=== PATIENT | male | born 2000 | race Caucasian/White ===

== ENCOUNTER 2022-02-18 17:40 | Emergency (ER) | payer BC, SELFPAY ==
[2022-02-18 17:40] VITALS: BP 143/80; PULSE 120; RESP 16; TEMP 38.2; O2SAT 98; BMI 26.6
[2022-02-18 17:53] VITALS: TEMP 38.4
--- NOTE | 2022-02-18 17:53 | EX.ED.DYSGE1 ---
HPI History of Present Illness Chief Complaint: General Illness Narrative Narrative: 21-year-old male who denies significant past medical history presents with his mother because of fever, nausea, vomiting, diarrhea, and dehydration. He states his symptoms began a week ago on Tuesday, over 8 days ago, when he had a sore throat. He developed nonproductive cough. Those symptoms have resolved, but on Tuesday, 4 days ago, he began having abdominal pain, nausea and vomiting. He has vomited 3 times in the last 24 hours without any blood in his emesis. He states it is hard for him to keep any food or water down. He also developed diarrhea. Mother states that he had right lower quadrant pain, but the patient describes more right upper quadrant pain. He states he has twinges of pain sometimes when he breathes deep in his right upper quadrant of his abdomen. He denies any right lower quadrant abdominal pain currently. No hematuria or dysuria. No blood in his stool. He is having loose, watery stool. His main concern is that he is dehydrated. PFSH [facility] Medical History no medical history Home Medications ondansetron 4 mg disintegrating tablet 4 mg PO Q6H PRN nausea and vomiting #15 tabs 02/18/22 [Rx Last Taken Unknown] Allergy/AdvReac Type Severity Reaction Status Date / Time No Known Allergies Allergy Verified 02/18/22 17:42 Social History Smoking Status: Never smoker ROS ROS ED ROS Narrative Constitutional: Positive fever, no chills. Feels mildly weak and dehydrated HEENT: No sore throat currently, started last week but has resolved. No neck pain. No loss of vision. No rhinorrhea. Cardiovascular: No chest pain. No palpitations. No pedal edema. Respiratory: Occasional cough, no shortness of breath. Abdominal: Right lower quadrant abdominal pain on Tuesday-resolved. Positive nausea. Positive vomiting. Positive diarrhea Genitourinary: No dysuria. No hematuria. Musculoskeletal: No myalgias. No arthralgias. Neurologic: No headaches. No dizziness. No lightheadedness. Skin: No rash. No change in color. Psychiatric: No depression. No anxiety. EXAM Physical Exam Narrative Exam Narrative: Temperature 100.7 ?F vital signs noted. Nontoxic-appearing. HEENT: Normocephalic. Atraumatic. PERRL, EOMI. Neck soft and supple. No point tenderness or step off. Cardiovascular: Positive tachycardia. No murmurs, rubs, or gallops appreciated. Respiratory: No tachypnea. Lungs clear to auscultation bilaterally. Gastrointestinal: Abdomen soft, nontender, with normoactive bowel sounds. No rebound or guarding. No pain in right lower quadrant of abdomen. No pain over McBurney's point. Negative Kennedy sign. Neurological: Awake. Alert. Nonfocal, nonlateralizing. Skin: No rash. Normal color. No pallor. Musculoskeletal: No pedal edema. Full range of motion extremities. Const Vital Signs: 02/18/22 17:40 02/18/22 17:53 Temperature 100.7 F H 101.2 F H Temperature Source Temporal Temporal Pulse Rate 120 H Respiratory Rate 16 Blood Pressure 143/80 H Blood Pressure Mean 101 Pulse Ox 98 Oxygen Delivery Method Room Air MDM MDM MDM Narrative Medical decision making narrative: Patient had taken Aleve prior to arrival approximately 2 hours ago and was able to keep it down. He will be bolused IV fluids. I will swab him for COVID, influenza, and RSV. Additionally, as he is febrile here he will be administered Toradol. He will also be administered ondansetron. I will check a CBC, CMP, and lipase given his nausea and vomiting. I will also check a urinalysis. I do not feel chest x-ray is indicated currently. His lungs are clear to auscultation bilaterally and his pulse ox is 98% on room air. I will hold off on any CT imaging as he has a nontender, soft abdomen/nonsurgical abdomen. CBC is grossly normal with a normal white count at 9.9, hemoglobin normal at 15.1, hematocrit 43.8, platelet count slightly low at 110 which I think is nonspecific. Sodium just below normal at 134 with a hypokalemia of 3.2, chloride 97 consistent with mild dehydration. He has a BUN of 13 with a creatinine of 1.26. Urinalysis is negative for infection with 0-5 white cells. I do not feel antibiotics are indicated. He was given oral potassium. I will administer Toradol 30 mg intravenously for his elevated temperature. After ondansetron and IV fluids he states he feels improved. His abdomen remains soft. I do not feel CT imaging is indicated. He has no pain in the right lower quadrant. Regardless, I reviewed appendicitis return precautions with the patient and his mother. He will start a clear liquid diet and advance as tolerated. He was written a prescription for Zofran 4 mg ODT's #15. At this point in time, I do feel he can be discharged safely home with follow-up. His respiratory swabs are negative. Return instructions to the emergency department were reviewed. Disposition is discharged home in stable condition. Lab Data Attestation: I reviewed the patient's lab results. Labs: Laboratory Results - last 24 hr 02/18/22 02/18/22 02/18/22 18:04 18:04 18:10 WBC 9.9 RBC 5.05 Hgb 15.1 Hct 43.8 MCV 86.7 MCH 29.9 MCHC 34.5 RDW Std Deviation 39.4 RDW Coeff of Tank 12.3 Plt Count 110 L MPV 10.2 Immature Gran % (Auto) 0.700 Neut % (Auto) 94.1 H Lymph % (Auto) 2.4 L [place] % (Auto) 2.5 Eos % (Auto) 0.0 Baso % (Auto) 0.3 Absolute Neuts (auto) 9.3 H Absolute Lymphs (auto) 0.24 L Nucleated RBC % 0 Differential Comment SCANNED Sodium 134 L Potassium 3.2 L Chloride 97 L Carbon Dioxide 28.0 Anion Gap 9 BUN 13 Creatinine 1.26 Estim Creat Clear Calc 99.60 Est GFR (MDRD) Af Amer 94 Est GFR (MDRD) Non-Af 77 BUN/Creatinine Ratio 10.3 Glucose 153 H Calcium 8.5 Total Bilirubin 1.30 H AST 45 H ALT 47 Alkaline Phosphatase 87 Total Protein 7.3 Albumin 3.3 Globulin 4.0 Albumin/Globulin Ratio 0.8 L Lipase 90 Urine Color [place] Urine Clarity Sl. Cloudy Urine pH 6.0 Ur Specific [place] 1.020 Urine Protein 100 H Urine Glucose (UA) Normal Urine Ketones 5 H Urine Occult Blood 150 H Urine Nitrite Negative Urine Bilirubin 1 H Urine Urobilinogen 4 H Ur Leukocyte Esterase 25 H Urine RBC 0-5 SEEN Urine WBC 0-5 SEEN Ur Squamous Epith Cells 0-5 SEEN Urine Bacteria 1+ Urine Mucus RARE Discharge Plan Triage Chief Complaint: General Illness ED Provider: Phi Grayson Dx/Rx/DC Orders Clinical Impression: Fever, Nausea vomiting and diarrhea, Abdominal pain, Hypokalemia Instructions: ED Diet Vomiting Diarrhea, ED Fever Control (Adult), ED Hypokalemia, ED Abdominal Pain Unkn Cause Male..., ED Vomiting and Diarrhea ... Prescriptions: New ondansetron 4 mg tablet,disintegrating 4 mg PO Q6H PRN (Reason: nausea and vomiting) Qty: 15 0RF Primary Care Provider: Jade Patten LIQUID COMPOUNDER Referrals: NOT,DEFINED [Non-Staff] - Activity Restrictions/Additional Instructions: Drink plenty of fluids. Disposition Disposition: Home, Self Care
[2022-02-18] MEDS: Ondansetron 4 MG/2 ML Vial IV (18:13)
[2022-02-18] MEDS: 0.9% Normal Saline 1,000 ML 1000 ML IV (18:13)
[2022-02-18 18:20] LABS: Absolute Lymphocyte Count 0.24 X10^3/uL (0.83-4.51); Absolute Neutrophil Count 9.3 X10^3/uL (2.0-7.7); Basophil# 0.03 X10^3/uL; Basophil% 0.3 % (0-1); Hematocrit 43.8 % (40-54); Hemoglobin 15.1 g/dL (13.0-16.5); Lymphocyte # 0.24 X10^3/ul (0.83-4.51); Lymphocyte % 2.4 % (19-41); Mean Corp Hgb Conc 34.5 g/dL (32-36); Mean Corpuscular Hgb 29.9 pg (27.0-32.0); Mean Corpuscular Volume 86.7 fL (80-94); Mean Platelet Vol. 10.2 fl (6.2-12.0); Monocyte# 0.25 X10^3/uL; Monocyte% 2.5 % (0-10); NRBC Flagged by Analyzer 0 % (0-5); Neutrophil # 9.32 X10^3/uL (2.7-7.7); Neutrophil % 94.1 % (47-70); POSITIVE DIFFERENTIAL YES; Platelet Count 110 K/mm3 (150-450); RBC Distribution Width CV 12.3 % (11.6-14.6); RBC Distribution Width SD 39.4 fl (35.1-43.9); Red Blood Count 5.05 M/mm3 (4.6-6.2); White Blood Count 9.9 K/mm3 (4.4-11.0)
[2022-02-18 18:27] LABS: Color, Urine Amber (Yellow); Glucose, Dipstick Normal (Normal); Ketone-Dipstick 5 mg/dl (Negative); Leukocyte Esterase-Dipstick 25 /ul (Negative); Nitrite-Dipstick Negative (Negative); Occult Blood-Urine 150 /ul (Negative); Protein-Dipstick 100 mg/dl (Negative); Urine Clarity Sl. Cloudy (Clear); Urine Urobilinogen 4 mg/dl (Normal)
[2022-02-18 18:27] LABS: Differential Indicated SCAN CRITERIA MET
[2022-02-18 18:32] LABS: Urine Bilirubin Dipstick 1 mg/dL (Negative)
[2022-02-18 18:34] LABS: Bacteria 1+ /hpf (None Seen); Mucous, Urine RARE /hpf (<or=2+); Red Blood Cells-Urine 0-5 SEEN /hpf (0-5); Squamous Epithelial Cells - UA 0-5 SEEN /hpf (0-5); White Blood Cells 0-5 SEEN /hpf (0-5)
[2022-02-18 18:39] LABS: ALB/GLOB Ratio 0.8 RATIO (0.9-2.4); AST(SGOT) 45 U/L (15-37); Alanine Aminotransfer ALT/SGPT 47 U/L (16-61); Albumin, Serum 3.3 g/dL (3.2-5.0); Alkaline Phosphatase 87 U/L (45-117); Anion Gap 9 (5-15); BUN 13 mg/dL (7-18); BUN/Creat Ratio 10.3 RATIO (10-20); Calcium,Total 8.5 mg/dL (8.5-10.1); Chloride 97 mmol/L (98-107); Creatinine, Serum 1.26 mg/dL (0.70-1.30); EST Glomerular Filtration Rate 77 mL/min (>60); Est Glom Filt Rate - Afr Amer 94 mL/min (>60); Glucose 153 mg/dL (74-106); Lipase 90 U/L (73-393); Potassium 3.2 mmol/L (3.5-5.1); Protein, Total 7.3 g/dL (6.4-8.2); Sodium Level 134 mmol/L (136-145)
[2022-02-18 18:49] LABS: Differential Comment SCANNED
[2022-02-18] MEDS: Ketorolac 30 MG/ML Syringe IV (19:04)
[2022-02-18] MEDS: Potassium Chloride Oral Tablet 20 MEQ 40 MEQ PO (19:04)
[2022-02-18 19:10] VITALS: BP 125/63; PULSE 98; RESP 18; O2SAT 97
== END 2022-02-18 19:24 | disposition home or self-care (01) ==
PROVIDERS: Emergency Provider Emergency Medicine; PCP Nurse Practitioner Family; Visit Provider Emergency Medicine
DX: R11.2 Nausea with vomiting, unspecified (principal); R19.7 Diarrhea, unspecified; E86.0 Dehydration; E87.6 Hypokalemia; R10.9 Unspecified abdominal pain; R50.9 Fever, unspecified
CPT/HCPCS: 80053; 81001; 83690; 85025; 87428; 87807; 96361; 96374; 96375; 99282; J7030; J2405

== ENCOUNTER 2022-02-20 16:39 | Emergency (ER) | payer BC, SELFPAY ==
[2022-02-20 16:40] VITALS: BP 150/89; PULSE 122; RESP 17; TEMP 39.6; O2SAT 99; BMI 27.6
[2022-02-20 18:19] LABS: Absolute Lymphocyte Count 0.31 X10^3/uL (0.83-4.51); Absolute Neutrophil Count 9.7 X10^3/uL (2.0-7.7); Basophil# 0.04 X10^3/uL; Basophil% 0.4 % (0-1); Eosinophil# 0.03 X10^3/uL; Eosinophils% 0.3 % (0-5); Hematocrit 41.8 % (40-54); Hemoglobin 14.4 g/dL (13.0-16.5); Lymphocyte # 0.31 X10^3/ul (0.83-4.51); Lymphocyte % 2.9 % (19-41); Mean Corp Hgb Conc 34.4 g/dL (32-36); Mean Corpuscular Hgb 29.9 pg (27.0-32.0); Mean Corpuscular Volume 86.7 fL (80-94); Monocyte# 0.61 X10^3/uL; Monocyte% 5.7 % (0-10); NRBC Flagged by Analyzer 0 % (0-5); Neutrophil # 9.72 X10^3/uL (2.7-7.7); Neutrophil % 90.1 % (47-70); POSITIVE DIFFERENTIAL YES; Platelet Count 121 K/mm3 (150-450); RBC Distribution Width CV 12.6 % (11.6-14.6); RBC Distribution Width SD 39.8 fl (35.1-43.9); Red Blood Count 4.82 M/mm3 (4.6-6.2); White Blood Count 10.8 K/mm3 (4.4-11.0)
[2022-02-20 18:20] LABS: Differential Indicated SCAN CRITERIA MET
[2022-02-20 18:22] LABS: Differential Comment SCANNED
[2022-02-20 18:26] LABS: Bacteria 0 SEEN /hpf (None Seen); Mucous, Urine 0 SEEN /hpf (<or=2+); Squamous Epithelial Cells - UA 0 SEEN /hpf (0-5); White Blood Cells 0 SEEN /hpf (0-5)
[2022-02-20 18:27] LABS: Color, Urine Yellow (Yellow); Glucose, Dipstick Normal (Normal); Ketone-Dipstick Negative (Negative); Leukocyte Esterase-Dipstick Negative /ul (Negative); Nitrite-Dipstick Negative (Negative); Occult Blood-Urine 50 /ul (Negative); Protein-Dipstick 15 mg/dl (Negative); Urine Bilirubin Dipstick Negative (Negative); Urine Clarity Sl. Cloudy (Clear); Urine Urobilinogen 1 mg/dl (Normal)
[2022-02-20 18:34] LABS: Red Blood Cells-Urine 0-5 SEEN /hpf (0-5)
[2022-02-20 18:35] LABS: Anion Gap 7 (5-15); BUN 12 mg/dL (7-18); BUN/Creat Ratio 10.3 RATIO (10-20); Calcium,Total 8.8 mg/dL (8.5-10.1); Chloride 101 mmol/L (98-107); Creatinine, Serum 1.16 mg/dL (0.70-1.30); EST Glomerular Filtration Rate 85 mL/min (>60); Est Glom Filt Rate - Afr Amer 103 mL/min (>60); Estimated Creatinine Clearance 108.19 ml/min; Glucose 118 mg/dL (74-106); Potassium 3.4 mmol/L (3.5-5.1); Sodium Level 136 mmol/L (136-145)
--- NOTE | 2022-02-20 19:34 | CT_ITS ---
STUDY: CT Abdomen And Pelvis W/ Contrast Injection 02/20/2022 8:09 PM REASON FOR EXAM: Male, 21 years old. ABDOMINAL PAIN abd pain and fever Technologist Notes rt side pain x 5 days, fever, nausea, emesis, TECHNIQUE: Transaxial images were obtained without oral contrast, and IV 100mL Isovue-370 intravenous contrast. Individualized dose optimization techniques were used for this CT. COMPARISON: None. FINDINGS: The visualized lung bases are unremarkable. The visualized portions of the heart are within normal limits. There is hepatomegaly with diffuse hepatic enlargement. Unremarkable gallbladder and extrahepatic biliary system. There is mild splenomegaly. Unremarkable pancreas. Multiple hepatic hypodensities. 21mm irregular hypodensity is also noted in the inferior right lobe of the liver. ACR White Paper guidelines (Hiller, et al. JACR 2017; 14(11):3273-8496.) recommend hepatic MR. Unremarkable bilateral adrenal glands. No acute findings of the right kidney. No acute findings of the left kidney. Unremarkable visualized stomach. Unremarkable small intestine. Unremarkable colon. The appendix is visualized and appears unremarkable. There are no acute findings of the abdominal aorta. Unremarkable inferior vena cava. Subcentimeter mesenteric lymph nodes. The urinary bladder is distended. This can suggest urinary retention. There is an umbilical hernia containing fat. Unremarkable osseous structures. CT/Abdomen/Pelvis W IV Cont ONLY IMPRESSION: (NOT LISTED IN ORDER OF SIGNIFICANCE) Enlarged liver. Multiple hepatic hypodensities. 21mm irregular hypodensity is also noted in the inferior right lobe of the liver. ACR White Paper guidelines (Hiller, et al. JACR 2017; 14(11):4594-6448.) recommend hepatic MR. The urinary bladder is distended. This can suggest urinary retention. There is mild splenomegaly. Other findings as above. Electronically Signed: Roosevelt Pichardo MD at 20:13 [facility] ,
--- NOTE | 2022-02-20 19:35 | EDS_ITS ---
HPI History of Present Illness Chief Complaint: Fever Informant: patient and parent Onset/Context/Timing Onset: Days Context: Gradual Onset Timing: Intermittent Current Severity: Mild Maximum Severity: Mild Narrative Narrative: 21-year-old male no seen in past medical or any prior surgical history. Since Tuesday when he eats he gets fevers and chills and starts having nausea, vomiting and diarrhea. Was seen in the emergency department the last several days thought to be a viral syndrome and discharged home. He is not improving and his mom wanted to have him reevaluated. He denies any right lower quadrant abdominal pain. He has never had any abdominal surgeries. He denies any dysuria. His labs from the other day and urinalysis were unremarkable. Prior similar symptoms: No Recent Illness/Hospitalization: No PFSH PFSH Medical History no medical history no medical history Home Medications ondansetron 4 mg disintegrating tablet 4 mg PO Q6H PRN nausea and vomiting #15 tabs 02/18/22 [Rx Last Taken Unknown] Allergy/AdvReac Type Severity Reaction Status Date / Time No Known Allergies Allergy Verified 02/20/22 16:39 Surgical History no surgical history no surgical history Social History Smoking Status: Never smoker ROS ROS ED ROS Narrative Fever with nausea, vomiting and diarrhea. Abdominal discomfort. Review of Systems ROS Unobtainable: Denies due to encephalopathy Constitutional Constitutional ED: Reports chills and fever(s) Eyes Eyes: Denies blurry vision ENT ENT ED: Denies ear pain Cardiovascular Cardiovascular: Denies chest pain Respiratory/Chest Respiratory/Chest: Denies cough or dyspnea Gastrointestinal Gastrointestinal: Reports abdominal pain, diarrhea, nausea and vomiting; Denies constipation or melena Genitourinary Genitourinary ED: Denies dysuria or hematuria Musculoskeletal Musculoskeletal: Denies arthralgias Integumentary Denies abscess Neurologic Neurologic: Denies headache(s) Psychiatric Psychiatric: Denies anxiety Endocrine Endocrinology: Denies cold intolerance Hematologic/Lymphatic Hematologic/Lymphatic: Reports none Allergic/Immunologic Allergic/Immunologic ED: Denies mouth swelling or tongue swelling EXAM Physical Exam Narrative Exam Narrative: Well-appearing 21-year-old male. Vital signs show fever one 3.2. Heart rate 122. Pulse ox 9 9% on room air no signs hypoxia. He does not look septic or toxic. He does not clinically look significantly dehydrated. He is in no distress. Mom is at bedside. H EENT exam unremarkable. Neck nontender. Lungs clear to auscultation bilaterally. Heart tachycardic rate about 120 no murmur. Abdomen soft only mildly tender right upper quadrant. Right lower quadrant is completely nontender. No hernia. No mass. No distention. Left-sided abdomen is nontender there are no peritoneal signs. Back nontender. Moving all 4 extremities. Skin no rashes. Neurologic exam normal. He is awake alert answering questions following commands. Const Vital Signs: 02/20/22 16:40 02/20/22 18:31 02/20/22 20:14 Temperature 103.2 F H 98.2 F Temperature Source Temporal Temporal Pulse Rate 122 H 90 Respiratory Rate 17 15 Respiratory Effort Normal Respiratory Pattern Normal Blood Pressure 150/89 H 124/63 H Blood Pressure Mean 109 83 Pulse Ox 99 99 Oxygen Delivery Method Room Air Room Air Positive well nourished and well developed; Negative for obese, cachectic, contractures or unkempt General Appearance ED: well developed and NAD; Negative for unkempt, cachectic, contractures, cyanotic or diaphoretic Nutritional Appearance: Negative for cachectic or obese HEENT Reports moist mucous membranes; Denies dry mucous membranes Negative for trauma or tenderness Mouth ED: No dry mucous membranes Mouth: No dry mucous membranes Eyes PERRL and EOMs intact bilaterally General Eye ED: Negative for pale conjunctiva or scleral icterus Neck no lymphadenopathy, supple and no JVD General: Negative for tenderness Chest Wall inspection of chest normal and palpation of chest normal Chest: Negative for other Resp clear to auscultation bilaterally Effort and Inspection: Negative for retractions Auscultation: Negative for rales, rhonchi or wheezes Cardio regular rhythm, S1 normal heart sound, S2 normal heart sound and no murmurs; Negative for regular rate Rate: tachycardic GI normal to inspection, nondistended, normoactive bowel sounds, non-distended and no masses; Negative for non-tender GI Narrative: Mildly tender just in the right upper quadrant. Right lower quadrant unremarkable. Auscultation: normoactive bowel sounds Palpation: soft and tender; Negative for guarding Back/Spine no CVA tenderness General Back: Negative for CVA tenderness Cervical Spine: Negative for cervical spine tenderness Thoracic Spine / Upper Back: Negative for thoracic spinal tenderness Lumbar Spine / Lower Back: Negative for lumbar spinal tenderness Extremity normal to inspection General Extremety ED: Negative for edema or tenderness General Extremity: Negative for edema Neuro oriented x3 and CN's II-XII intact bilaterally Sensorium / Orientation: alert; Negative for orientation impaired, lethargic or stuporous Motor Exam: strength 5/5 throughout Psych mental status grossly normal Appearance: Negative for unkempt Attitude: No agitated Mood & Affect: Negative for depressed, anxious or tearful Skin no rashes or lesions noted, no wounds and skin turgor normal General Skin Exam: elasticity normal Lesions: No lesion noted Rashes: No rashes noted Trauma: Negative for abrasion Wounds: Negative for wounds noted MDM MDM MDM Narrative Medical decision making narrative: Young male with nausea vomiting diarrhea and fever. Is now been ongoing for 4 days. This could be a viral gastroenteritis versus gallbladder disease versus other etiologies. CAT scan labs are being obtained. I did review his CBC, chemistry and urine from 112 and they were all negative. He will be treated with IV fluids and IV Toradol for his fever. Repeat exam at 9:28 PM patient doing well. Abdomen benign. I went over all his test results of both he and his mother. They are comfortable with him being discharged home. He will be treated as a viral gastroenteritis. He already has a prescription for Zofran at home. Fluids and rest and increase diet slowly as tolerated. Lab Data Attestation: I reviewed the patient's lab results. Lab results narrative: CBC with a normal white count 10.8 H&H of 14.4 and 41. Platelets are low at 121,000. Electrolytes show potassium 3.4 gap of 7 normal being creatinine. Liver enzymes unremarkable glucose 118. Lipase 56. UA negative. No significant changes from his labs from several days ago. Labs: Laboratory Results - last 24 hr 02/20/22 02/20/22 02/20/22 18:11 18:11 18:22 WBC 10.8 RBC 4.82 Hgb 14.4 Hct 41.8 MCV 86.7 MCH 29.9 MCHC 34.4 RDW Std Deviation 39.8 RDW Coeff of Tank 12.6 Plt Count 121 L MPV 10.0 Immature Gran % (Auto) 0.600 Neut % (Auto) 90.1 H Lymph % (Auto) 2.9 L [place] % (Auto) 5.7 Eos % (Auto) 0.3 Baso % (Auto) 0.4 Absolute Neuts (auto) 9.7 H Absolute Lymphs (auto) 0.31 L Nucleated RBC % 0 Differential Comment SCANNED Sodium 136 Potassium 3.4 L Chloride 101 Carbon Dioxide 28.0 Anion Gap 7 BUN 12 Creatinine 1.16 Estim Creat Clear Calc 108.19 Est GFR (MDRD) Af Amer 103 Est GFR (MDRD) Non-Af 85 BUN/Creatinine Ratio 10.3 Glucose 118 H Calcium 8.8 Phosphorus 2.2 L Total Bilirubin 1.00 AST 20 ALT 37 Alkaline Phosphatase 84 Albumin 2.8 L Lipase 56 L Urine Color Yellow Urine Clarity Sl. Cloudy Urine pH 8.0 Ur Specific [place] 1.010 Urine Protein 15 H Urine Glucose (UA) Normal Urine Ketones Negative Urine Occult Blood 50 H Urine Nitrite Negative Urine Bilirubin Negative Urine Urobilinogen 1 H Ur Leukocyte Esterase Negative Urine RBC 0-5 SEEN Urine WBC 0 SEEN Ur Squamous Epith Cells 0 SEEN Urine Bacteria 0 SEEN Urine Mucus 0 SEEN Radiography Diagnostic Testing: Clinical Impression(s) from Imaging Studies Abdomen/Pelvis CT 02/20/22 19:34 IMPRESSION: (NOT LISTED IN ORDER OF SIGNIFICANCE) Enlarged liver. Multiple hepatic hypodensities. 21mm irregular hypodensity is also noted in the inferior right lobe of the liver. ACR White Paper guidelines (Alissa, et al. JACR 2017; 14(11):9746-3016.) recommend hepatic MR. The urinary bladder is distended. This can suggest urinary retention. There is mild splenomegaly. Other findings as above. Electronically Signed: Roosevelt Pichardo MD at 20:13 EST Reading Location ID and State: [facility] / [place] , Service support , Discharge Plan Triage Chief Complaint: Fever ED Provider: Darwin Deal Dx/Rx/DC Orders Clinical Impression: Viral gastroenteritis Instructions: Viral Gastroenteritis Prescriptions: No Action ondansetron 4 mg tablet,disintegrating 4 mg PO Q6H PRN (Reason: nausea and vomiting) Qty: 15 0RF Primary Care Provider: Jade Patten SEISMIC PROSPECTING OBSERVER HELPER Referrals: Jade Patten SEISMIC PROSPECTING OBSERVER HELPER, SEISMIC PROSPECTING OBSERVER HELPER-C [Primary Care Provider] - 3-5 Days if not improving Activity Restrictions/Additional Instructions: Plenty of fluids and rest. Increase diet slowly as tolerated. Zofran as needed for nausea. Follow-up with your primary care provider if not improving. Disposition Disposition: Home, Self Care
[2022-02-20] MEDS: 0.9% Normal Saline 1,000 ML 1000 ML IV (19:46)
[2022-02-20 20:14] VITALS: BP 124/63; PULSE 90; RESP 15; TEMP 36.8; O2SAT 99
[2022-02-20 20:41] LABS: AST(SGOT) 20 U/L (15-37); Alanine Aminotransfer ALT/SGPT 37 U/L (16-61); Albumin, Serum 2.8 g/dL (3.2-5.0); Alkaline Phosphatase 84 U/L (45-117); Lipase 56 U/L (73-393); Phosphorus 2.2 mg/dL (2.5-4.9)
[2022-02-20 21:36] VITALS: BP 126/74; PULSE 89; RESP 15; O2SAT 98
== END 2022-02-20 21:44 | disposition home or self-care (01) ==
PROVIDERS: Emergency Provider Emergency Medicine; PCP Nurse Practitioner Family; Visit Provider Emergency Medicine
DX: A08.4 Viral intestinal infection, unspecified (principal)
CPT/HCPCS: 74177; 80048; 81001; 82040; 82247; 83690; 84075; 84100; 84450; 84460; 85025; 96360; 99283; J7030; Q9967; A4216